=== PATIENT | female | born 1980 | race Caucasian/White ===

== ENCOUNTER 2022-12-13 11:19 | Outpatient (CLI) | payer BC, SELFPAY ==
[2022-12-13 12:35] LABS: Kit Draw Collected
== END 2022-12-13 11:20 | disposition home or self-care (01) ==
LOC: ANHGOSHLAB 11:23
PROVIDERS: PCP Internal Medicine; Visit Provider Clinical Nurse Specialist
DX: Z13.228 Encounter for screening for other metabolic disorders (principal); Z13.220 Encounter for screening for lipoid disorders; E55.9 Vitamin D deficiency, unspecified; F41.9 Anxiety disorder, unspecified; R41.3 Other amnesia
CPT/HCPCS: 36415

== ENCOUNTER 2023-05-09 19:39 | Outpatient (NON) | payer BC, SELFPAY ==
[2023-05-09 21:03] LABS: Appearance Urine Cloudy (Clear); Bacteria Urine 4+ /hpf; Bilirubin Urine Negative (Negative); Blood Urine Negative (Negative); Color Urine Yellow (Yellow); Glucose Urine UA Negative (Negative); Ketones Urine Negative (Negative); Leukocyte Esterase Ur 3+ LEU/UL (Negative); Nitrate Urine Positive (Negative); Protein Urine Negative (Negative); RBC Urine 0-2 /hpf (0-2); Specific Grav Ur 1.011 (1.001-1.035); Squamous Epithelial Cell Urine Few /hpf (Few); Urobilinogen Urine 0.2 mg/dL (<2.0); WBC Urine 21-50 /hpf
[2023-05-09 21:15] LABS: Add Urine Microscopic? YES
== END 2023-05-09 19:40 | disposition home or self-care (01) ==
LOC: ANHLAB 19:42
PROVIDERS: PCP Internal Medicine; Visit Provider Nurse Practitioner
DX: N39.0 Urinary tract infection, site not specified (principal)
CPT/HCPCS: 81001; 87077; 87086; 87186